=== PATIENT | male | born 1965 | race Caucasian/White ===

== ENCOUNTER → 2023-01-07 13:50 | Outpatient (CLI) | payer OTHER, SELFPAY ==
[2023-01-07 14:46] LABS: Influenza A - CEPHEID Flu A NEGATIVE (NEGATIVE); Influenza B - CEPHEID Flu B NEGATIVE (NEGATIVE); Respiratory Syncytial Virus Negative (Negative)
[2023-01-07 15:04] LABS: COVID-19 CEPHEID 4-PLEX PCR Negative (Negative)
== END ==
PROVIDERS: Visit Provider Physician Assistant
DX: R05.1 Acute cough (principal)
CPT/HCPCS: 0241U

== ENCOUNTER 2024-05-24 08:47 | Emergency (ER) | payer OTHER, SELFPAY ==
[2024-05-24 08:52] VITALS: O2SAT 92
[2024-05-24 08:53] VITALS: BP 125/78; O2SAT 97
--- NOTE | 2024-05-24 08:54 | DI.RAD.S_ITS ---
PROCEDURE: XR CHEST 1V INDICATIONS: eval for pna TECHNIQUE: One view of the chest was acquired. COMPARISON: None. FINDINGS: Surgical changes and devices: None. Lungs and pleura: Lungs are clear. No pleural effusions or pneumothorax. Mediastinum: Mediastinal contours appear normal. Heart size is normal. Bones and chest wall: No suspicious bony lesions. Overlying soft tissues appear unremarkable. IMPRESSION: No acute cardiopulmonary abnormalities or focal consolidation. Dictated by: Thom Franco M.D. on 05/24/2024 at 9:12 Approved by: Thom Franco M.D. on 05/24/2024 at 9:13
[2024-05-24 08:55] VITALS: BP 125/78; PULSE 77; RESP 16; TEMP 36.9; O2SAT 97; BMI 23.6
--- NOTE | 2024-05-24 09:02 | ED.GENADULT ---
HPI - General Adult General Chief complaint: Upper Respiratory Symptoms Stated complaint: fatigue, poss pneumonia, cough Time Seen by Provider: 05/24/24 08:53 Source: patient Mode of arrival: Ambulatory Limitations: no limitations History of Present Illness HPI narrative: Patient was a 59-year-old male. Has a history of pleurisy. Is here for evaluation of several days of cough and congestion and fevers and occasional sore throat. He was seen in outside facility a couple days ago. Had a swab performed which was negative. Comes today because he states he feels like it was now moving down into his chest. Related Data Home Medications Medication Instructions Recorded Confirmed tamsulosin 0.4 mg capsule 0.4 mg PO DAILY 11/02/21 04/21/24 Allergies Allergy/AdvReac Type Severity Reaction Status Date / Time amoxicillin Allergy Mild Nausea Verified 04/21/24 10:42 Review of Systems Review of Systems Narrative: See HPI Patient History Social History Smoking Status: Never smoker Smoking Status: Never smoker Exam Initial Vital Signs Initial Vital Signs: Vital Signs Temperature 98.4 F 05/24/24 08:55 Pulse Rate 77 05/24/24 08:55 Respiratory Rate 16 05/24/24 08:55 Blood Pressure 125/78 05/24/24 08:55 Pulse Oximetry 97 05/24/24 08:55 Oxygen Delivery Method Room Air 05/24/24 08:55 Const General: cooperative, comfortable and No ill appearing HENMT Head: normal to inspection and normocephalic Resp Effort & Inspection: normal respiratory effort Auscultation: clear to auscultation bilaterally Cardio Rate: regular rate Rhythm: regular rhythm Skin General: no rashes or lesions noted Neuro General: patient alert, patient awake and moves all extremities Course Orders Ordered: ED Orders 05/24/24 08:54 XR chest 1V Stat 05/24/24 09:21 Covid-19 + FLU A/B + RSV - PCR Stat Vital Signs Vital signs: Vital Signs - 8 hr 05/24/24 08:55 Temperature 98.4 F Pulse Rate 77 Respiratory Rate 16 Blood Pressure 125/78 Pulse Oximetry 97 Oxygen Delivery Method Room Air Medical Decision Making Lab Data Labs: Lab Results 05/24/24 Range/Units 09:21 SARS-CoV-2 (PCR) Negative (Negative) Influenza A (RT-PCR) Flu a negative (NEGATIVE) Influenza B (RT-PCR) Flu b negative (NEGATIVE) RSV (PCR) Negative (Negative) Imaging Data Chest x-ray: Radiologist's Impression: PROCEDURE: XR CHEST 1V INDICATIONS: eval for pna TECHNIQUE: One view of the chest was acquired. COMPARISON: None. FINDINGS: Surgical changes and devices: None. Lungs and pleura: Lungs are clear. No pleural effusions or pneumothorax. Mediastinum: Mediastinal contours appear normal. Heart size is normal. Bones and chest wall: No suspicious bony lesions. Overlying soft tissues appear unremarkable. IMPRESSION: No acute cardiopulmonary abnormalities or focal consolidation. MDM Narrative Medical decision making narrative: Chest x-ray shows no signs of pneumonia. Respiratory panel was negative the patient has a obvious respiratory infection. No indication for antibiotics. No fevers. No respiratory distress. We discussed [id number] medications to help with symptoms. He was given return precautions. He expressed understanding and agreement. Discharge Plan Departure Patient Disposition: Home Clinical Impression: Upper respiratory infection Instructions: DI for Viral Upper Respiratory Infection -- Adult Activity Restrictions/Additional Instructions: The benzoate/Tessalon maximum doses 600 mg in 1 day. Be sure that you were increasing your fluid intake. You can try Benadryl as well to help you sleep. Prescriptions: No Action tamsulosin 0.4 mg capsule 0.4 mg PO DAILY Stand Alone Forms: Patient Portal/API/Survey
[2024-05-24 10:00] LABS: COVID-19 CEPHEID 4-PLEX PCR Negative (Negative); Influenza A - CEPHEID Flu A NEGATIVE (NEGATIVE); Influenza B - CEPHEID Flu B NEGATIVE (NEGATIVE); Respiratory Syncytial Virus Negative (Negative)
== END 2024-05-24 10:45 | disposition home or self-care (01) ==
PROVIDERS: Emergency Provider Emergency Medicine
DX: J06.9 Acute upper respiratory infection, unspecified (principal)
CPT/HCPCS: 0241U; 71045; 99283